=== PATIENT | female | born 1970 | race Caucasian/White ===

== ENCOUNTER 2017-08-20 13:14 | Emergency (ER) | payer MEDICARE, OTHER ==
[~2017-08-20] VITALS: Ht 170.2 cm; Wt 113.4 kg
[2017-08-20 13:38] VITALS: BP 162/88
== END 2017-08-20 14:52 | disposition home or self-care (01) ==
LOC: ER 13:14
DX: F32.9 Major depressive disorder, single episode, unspecified (principal); I10 Essential (primary) hypertension; Z88.1 Allergy status to other antibiotic agents; Z76.0 Encounter for issue of repeat prescription